=== PATIENT | male | born 1960 | race Caucasian/White ===

== ENCOUNTER → 2021-09-23 15:53 | Outpatient (CLI) | payer BC, SELFPAY ==
--- NOTE | ~2021-09-23 | US_ITS ---
EXAMINATION: US retroperitoneal comp DATE: 09/23/2021 16:17 INDICATION: Urinary retention. Benign nodular prostatic hyperplasia with lower urinary tract TECHNIQUE: Multiple ultrasound grayscale images of the kidneys were obtained. COMPARISON: CT dated 08/11/2012 FINDINGS: The right kidney measures 10.6 x 6.4 x 6.6 cm. The left kidney measures 12.4 x 6.6 x 6.2 cm. The kidn eys demonstrate normal echogenicity. 1.2 cm anechoic parapelvic cyst at the lower pole of the left ki dney. There is no hydronephrosis in either kidney. No stones identified. The bladder appears normal with prevoid calculated bladder volume of 281 mm with relatively small decrease to a post void calcul ated bladder volume of 214 mL. IMPRESSION: 1. 1.2 cm left renal cyst. Otherwise normal kidneys without hydronephrosis. 2. Urinary retention with pre and postvoid calculated bladder volume was of 281 mL and 214 mL respect ively. Reviewed, dictated and finalized at location [facility]. IMPRESSION: 1. 1.2 cm left renal cyst. Otherwise normal kidneys without hydronephrosis. 2. Urinary retention with pre and postvoid calculated bladder volume was of 281 mL and 214 mL respectively.
== END ==
PROVIDERS: PCP Family Medicine; Visit Provider Urology
DX: N40.1 Benign prostatic hyperplasia with lower urinary tract symptoms (principal); N28.1 Cyst of kidney, acquired
CPT/HCPCS: 76770

== ENCOUNTER 2023-12-08 06:33 | Outpatient (CLI) | payer BC, SELFPAY ==
--- NOTE | ~2023-12-08 | CT_ITS ---
CT of the Abdomen and Pelvis: Indication: Hematuria Technique: 2.5 mm axial scans were obtained through the abdomen and pelvis prior to and following in travenous administration of 130 cc of Omnipaque 350. Dose reduction technique was used on this scan b y utilizing automated exposure control and iterative reconstruction technique. The dose-length produc t (DLP) was 1719.09 mGy-cm. Findings: Scans through the lung bases are unremarkable. The liver, spleen, pancreas, gallbladder, adrenals and kidneys are within normal limits. No evidence of aortic aneurysm. No lymphadenopathy. No bowel obstruction or bowel wall thickening. There is no evidence to suggest acute appendicitis. Images through the pelvis were performed. Urinary bladder unremarkable. Prostate gland enlarged. Impression: Significantly enlarged prostate gland. No other significant abnormality of the system seen. Reviewed, dictated and finalized at [facility]. Impression: Significantly enlarged prostate gland. No other significant abnormality of the system seen.
[2023-12-08 07:10] LABS: Estimated Glomerular Filt Rate > 60
== END 2023-12-08 06:34 | disposition home or self-care (01) ==
PROVIDERS: PCP Family Medicine; Visit Provider Urology
DX: R31.0 Gross hematuria (principal); N40.0 Benign prostatic hyperplasia without lower urinary tract symptoms
CPT/HCPCS: 74178; Q9967